=== PATIENT | male | born 1985 | race Caucasian/White ===

== ENCOUNTER 2023-12-31 14:32 | Emergency (ER) | payer OTHER, SELFPAY ==
[2023-12-31 15:17] VITALS: BP 110/69; PULSE 63; RESP 16; TEMP 36.8; O2SAT 97; BMI 24.4
--- NOTE | 2023-12-31 15:21 | ED.EXTPRO ---
HPI - Extremity Problem General Chief complaint: Skin/Abscess/Foreign Body Stated complaint: r foot cyst Time Seen by Provider: 12/31/23 15:21 Source: patient and family Mode of arrival: ambulatory Limitations: no limitations History of Present Illness ED Provider: Christine Wick PA-C HPI Narrative: 38 yo male presents to the ER for evaluation of a painful blister to the 2nd toe on the right foot. has been present for days. works at [employer] in and wear work boots which makes it worse. it is tender to touch. no drainage. no itching. no lesions on any other toes. MD Complaint: other (toe pain) Onset (ago): day(s) Pain Consistency: constant Location: right and toe Severity scale (1-10): 4 Quality: aching Radiation: none Relieving factors: rest Exacerbating factors: weight bearing, walking and palpation Associated symptoms: denies other symptoms Related Data Allergies Allergy/AdvReac Type Severity Reaction Status Date / Time No Known Allergies Allergy Verified 12/31/23 15:22 Review of Systems Review of Systems: Yes all other systems are reviewed and are negative [facility] Social History Social History Advance Directives: No Advance Directives Information Provided: Yes Do you have a plan to hurt others: No Plan Physical Exam Vital Signs: Vital Signs: Last Vital Signs Temp 98.3 F 12/31/23 15:17 Pulse 63 12/31/23 15:17 Resp 16 12/31/23 15:17 BP 110/69 12/31/23 15:17 Pulse Ox 97 12/31/23 15:17 O2 Del Method Room Air 12/31/23 15:17 BMI result Body Mass Index 24.4 Appearance: Alert. Oriented X3. No acute distress. HEENT: normal inspection CVS: Normal heart rate and rhythm. Pulses normal. Respiratory: No respiratory distress. Skin: Skin warm and dry. Normal skin color. Normal skin turgor. No rashes. Extremities: medial aspect of 2nd toe with a tender wart. no rash, no blister. no joint swelling or tenderness. Neuro: Oriented X 3. No motor deficit. No sensory deficit. Medical Decision Making Medical Decision Making MDM Narrative: 38 yo male presenting to the ER for evaluation of painful lesion on the 2nd right toe - exam c/w a wart. discussed treatment with OTC meds like compound W and referral to PCP or podiatry if no improvement. stable for d/c home. Differential Diagnosis Differential Diagnoses: The differential diagnosis associated with the presentation includes wart, blister, gout, athletes foot, wound Independent Historian Clinical information obtained from an independent historian. History obtained from or confirmed by: Spouse Tests considered The following testing was considered but not selected: considered xray but no trauma or swelling Prescription Management I considered prescription management with: Pain Medication, Antiviral and Antibiotic Critical Care Time Critical Care Time Critical Care Time: No Discharge Plan Discharge Clinical Impression: Warts of foot Patient Disposition: Home, Self-Care Instructions: Common Wart (ED), Cryotherapy Wart Removal (DC) Additional Instructions: recommend over the counter Dr. Clarke's Compound W to remove the wart. use according to packaging details recommend gauze or foam padding between your toes while at work follow up with your doctor. If you develop new or worsening symptoms call 911 or come back to the ER for further evaluation. recommend following up with a Vice President Of Finance if you have ongoing problems. Referrals: Yo Bryan MD [Physician] - Stand Alone Forms: Work/School Release Discharge Date/Time: 12/31/23 15:39 Print Language: Faroese
== END 2023-12-31 15:39 | disposition home or self-care (01) ==
PROVIDERS: Emergency Provider Student in an Organized Health Care Education/Training Program
DX: S90.424A Blister (nonthermal), right lesser toe(s), initial encounter (principal); B07.9 Viral wart, unspecified; X58.XXXA Exposure to other specified factors, initial encounter; Y93.89 Activity, other specified; Y92.89 Other specified places as the place of occurrence of the external cause; Y99.8 Other external cause status
CPT/HCPCS: 99281; 99282

== ENCOUNTER 2024-03-16 09:54 | Outpatient (REF) | payer OTHER, SELFPAY ==
[2024-03-18 14:49] LABS: RPR Rapid Plasma Reagin NON-REACTIVE (NON-REACTIVE)
[2024-03-19 02:53] LABS: TS Negative Control Passed; TS Panel A 3; TS Panel B 2; TS Positive Control Passed; TSpotTB Negative (Negative)
== END 2024-03-16 09:55 | disposition home or self-care (01) ==
LOC: HO.LAB 09:54
PROVIDERS: Internal Medicine; PCP Internal Medicine; Visit Provider Internal Medicine
DX: Z02.89 Encounter for other administrative examinations (principal)
CPT/HCPCS: 36415; 86481; 86592